=== PATIENT | male | born 1930 | race American Indian/Alaskan Native ===

== ENCOUNTER 2016-11-06 22:32 | Inpatient (IN) | payer MEDICARE ==
[2016-11-06] MEDS ORDERED: NACL 0.9% 1000 ML 1,000 ML IV ONE (23:29)
--- NOTE | 2016-11-06 23:36 | Emergency Department Report ---
HPI - General Chief Complaint: Altered Mental Status Time Seen by Provider: 11/06/16 23:23 - HPI HPI: Room 2 The patient is an 85-year-old male presenting with a chief complaint of altered mental status. Patient was sent from [facility] for low blood pressure. When asked why he was sent to the emergency department the patient replies softly "I don't know." The patient appeared lethargic. When asked if he had pain anywhere the patient mentions pain in the low back. The patient knowledges the pain as been there for months. Patient denies any new complaints. Patient denies pain elsewhere or any shortness of breath. Location: [see above] Duration: Unknown Quality: Altered, hypotensive Severity: Moderate Modifying factors: [see above] Context: [see above] Mode of transportation: [not driving] ED Past Medical Hx - Past Medical History Hx Dementia: Yes Additional medical history: high cholesterol - Surgical History Past Surgical History?: No Additional Surgical History: unknown - Family History Family history: no significant - Social History Smoking Status: Unknown if ever smoked Substance Use Type: None - Medications Home Medications: Home Medications Medication Instructions Recorded Confirmed Last Taken Type Aspirin 81 mg PO DAILY 02/29/16 11/06/16 11/06/16 History Cyanocobalamin (Vitamin B-12) 1,000 mcg PO DAILY 02/29/16 11/06/16 11/06/16 History [Vitamin B-12] Folic Acid [Folvite] 1 mg PO QDAY 02/29/16 11/06/16 11/06/16 History Gabapentin [Neurontin 250 mg/5 ml] 5 ml PO DAILY 02/29/16 11/06/16 11/06/16 History Ibuprofen [Motrin 800 MG tab] 800 mg PO Q8HR PRN #20 tablet 02/29/16 11/06/16 Rx Lisinopril/Hydrochlorothiazide 1 tab PO QDAY 02/29/16 11/06/16 11/06/16 History [Zestoretic 20-12.5 mg] Memantine Xr [Namenda Xr] 14 mg PO DAILY 02/29/16 11/06/16 11/06/16 History Potassium Chloride 10 meq PO QDAY 02/29/16 11/06/16 11/06/16 History Simvastatin [Zocor TAB] 20 mg PO QHS 02/29/16 11/06/16 11/06/16 History Cyanocobalamin (Vitamin B-12) 1,000 mcg PO DAILY 11/06/16 11/06/16 11/06/16 History [Vitamin B-12] Furosemide [Lasix] 20 mg PO QDAY 11/06/16 11/06/16 11/06/16 History Magnesium Citrate [Citroma] 296 ml PO DAILY 11/06/16 11/06/16 11/06/16 History QUEtiapine [SEROquel] 25 mg PO DAILY 11/06/16 11/06/16 11/06/16 History Sennosides/Docusate Sodium [Senna 1 each PO DAILY 11/06/16 11/06/16 11/06/16 History Laxative Tablet] ED Review of Systems ROS: Stated complaint: LOW BP Other details as noted in HPI Comment: Unobtainable due to pts medical conditions Musculoskeletal: back pain Physical Exam - Physical Exam Vital Signs: Vital Signs 11/06/16 11/06/16 22:33 22:42 Temperature 98.1 F Pulse Rate 85 85 Respiratory 16 16 Rate Blood Pressure 88/58 Blood Pressure 88/58 [Left] O2 Sat by Pulse 97 97 Oximetry Physical Exam: GENERAL: The patient is well-developed well-nourished male sleeping on stretcher somewhat difficult to arouse and lethargic in appearance. [] HEENT: Normocephalic. Atraumatic. NECK: Supple. Trachea midline CHEST/LUNGS: Clear to auscultation. There is no respiratory distress noted. HEART/CARDIOVASCULAR: Regular. There is no tachycardia. There is no gallop rub or murmur. ABDOMEN: Abdomen is soft, nontender. Patient has normal bowel sounds. There is no abdominal distention. SKIN: There is no rash. There is no edema. There is no diaphoresis. NEURO: The patient is lethargic and only opens his eyes when awakened by verbal and tactile stimuli. The patient is soft spoken and whispers his replies. The patient does not cooperate with neurological exam MUSCULOSKELETAL: There is no evidence of acute injury. ED Course Vital Signs 11/06/16 11/06/16 22:33 22:42 Temperature 98.1 F Pulse Rate 85 85 Respiratory 16 16 Rate Blood Pressure 88/58 Blood Pressure 88/58 [Left] O2 Sat by Pulse 97 97 Oximetry ED Medical Decision Making - Lab Data Result diagrams: 11/06/16 23:15 11/06/16 23:15 Laboratory Tests 11/06/16 11/06/16 11/06/16 23:15 23:15 23:15 WBC 5.0 RBC 3.90 Hgb 12.0 Hct 37.0 MCV 95 H MCH 31 MCHC 32 RDW 15.7 H Plt Count 136 L Lymph % (Auto) 34.2 [place] % (Auto) 9.6 H Eos % (Auto) 2.2 Baso % (Auto) 0.3 Lymph # 1.7 [place] # 0.5 Eos # 0.1 Baso # 0.0 Seg Neutrophils % 53.7 Seg Neutrophils # 2.7 PT INR APTT Sodium 139 Potassium 3.9 Chloride 103.5 Carbon Dioxide 23 Anion Gap 16 BUN 22 H Creatinine 1.1 Estimated GFR > 60 BUN/Creatinine Ratio 20.00 Glucose 101 H Lactic Acid 1.40 Calcium 9.0 Total Bilirubin 0.20 AST 13 ALT 11 Alkaline Phosphatase 106 Ammonia Total Creatine Kinase CK-MB (CK-2) CK-MB (CK-2) Rel Index Troponin T < 0.010 NT-Pro-B Natriuret Pep Total Protein 6.3 Albumin 3.3 L Albumin/Globulin Ratio 1.1 TSH Free T4 11/07/16 11/07/16 11/07/16 00:11 00:11 00:11 WBC RBC Hgb Hct MCV MCH MCHC RDW Plt Count Lymph % (Auto) [place] % (Auto) Eos % (Auto) Baso % (Auto) Lymph # [place] # Eos # Baso # Seg Neutrophils % Seg Neutrophils # PT 16.0 H INR 1.29 H APTT 29.3 Sodium Potassium Chloride Carbon Dioxide Anion Gap BUN Creatinine Estimated GFR BUN/Creatinine Ratio Glucose Lactic Acid Calcium Total Bilirubin AST ALT Alkaline Phosphatase Ammonia 71.0 H Total Creatine Kinase 63 CK-MB (CK-2) 2.1 CK-MB (CK-2) Rel Index 3.3 Troponin T < 0.010 NT-Pro-B Natriuret Pep 841.7 Total Protein Albumin Albumin/Globulin Ratio TSH Free T4 11/07/16 00:11 WBC RBC Hgb Hct MCV MCH MCHC RDW Plt Count Lymph % (Auto) [place] % (Auto) Eos % (Auto) Baso % (Auto) Lymph # [place] # Eos # Baso # Seg Neutrophils % Seg Neutrophils # PT INR APTT Sodium Potassium Chloride Carbon Dioxide Anion Gap BUN Creatinine Estimated GFR BUN/Creatinine Ratio Glucose Lactic Acid Calcium Total Bilirubin AST ALT Alkaline Phosphatase Ammonia Total Creatine Kinase CK-MB (CK-2) CK-MB (CK-2) Rel Index Troponin T NT-Pro-B Natriuret Pep Total Protein Albumin Albumin/Globulin Ratio TSH 1.290 Free T4 1.02 - EKG Data -: EKG Interpreted by Me EKG shows normal: sinus rhythm Rate: normal - EKG Data When compared to previous EKG there are: previous EKG unavailable Interpretation: nonspecific ST-T wave brie (T-wave inversions in leads 1, 2, aVL , aVF, V3, V4, V5, V6), other (left bundle branch block) - Radiology Data Radiology results: report reviewed (CT head), image reviewed (chest x-ray, CT head) interpreted by me: Chest x-ray-no focal infiltrates, no pneumothorax CT head (read by radiologist)-no acute abnormality - Differential Diagnosis altered mental status, sepsis, UTI, symptomatic anemia, Critical care attestation.: If time is entered above; I have spent that time in minutes in the direct care of this critically ill patient, excluding procedure time. ED Disposition Clinical Impression: Altered mental status, Hepatic encephalopathy, Dehydration Disposition: OP ADMITTED IP TO THIS HOSP Is pt being admited?: Yes Does the pt Need Aspirin: Yes Condition: Fair Referrals: PRIMARY CARE, [Primary Care Provider] - 3-5 Days Time of Disposition: 03:24 (hospitalist notified)
[2016-11-06 23:52] LABS: Basophils % (Auto) 0.3 % (0.0-1.8); Eosinophils % (Auto) 2.2 % (0.0-4.3); Mean Corpuscular HGB Conc 32 % (32-34); Mean Corpuscular Hemoglobin 31 pg (28-32); Mean Corpuscular Volume 95 fl (84-94); Platelet Count 136 K/mm3 (140-440); Red Cell Distribution Width 15.7 % (13.2-15.2)
[2016-11-07 00:13] LABS: Alanine Aminotransferase 11 units/L (7-56); Albumin 3.3 g/dL (3.9-5); Albumin/Globulin Ratio 1.1 %; Alkaline Phosphatase 106 units/L (35-129); Anion Gap 16 mmol/L; Blood Urea Nitrogen 22 mg/dL (9-20); Carbon Dioxide 23 mmol/L (22-30); Chloride 103.5 mmol/L (98-107); Glucose 101 mg/dL (75-100); Potassium 3.9 mmol/L (3.6-5.0); Sodium 139 mmol/L (137-145); Total Protein 6.3 g/dL (6.3-8.2)
--- NOTE | 2016-11-07 00:57 | Admit Criteria Form ---
Admission Criteria Documentation: HEMODYNAMIC INSTABILITY Clinical Indications for Inpatient Care (Place 'X' for any and all applicable criteria): Ongoing inpatient care may be indicated for hemodynamic instability as indicated by ANY ONE of the following (1)(2)(3)(4)(10): [ ]I) Marked hemodynamic change from baseline (eg, SBP 20 mm Hg below patient's usual pressure) [ ]II) New SBP less than 90 mm Hg or mean arterial pressure less than 70 mm Hg [B](15) [ ]IIII) Symptomatic heart rate greater than 100 or less than 60 beats per minute unresponsive to treatment (eg, analgesia, fluids) [X ]IV) Inadequate perfusion as indicated by ANY ONE of the following: [ ]a) Lactic acidosis, with lactic acid greater than 18 mg/dL (2 mmol/ L) or base excess less than -5 mEq/L [ ]b) New abnormal capillary refill (longer than 3 seconds) [X ]c) New altered mental status [ ]d) Reduced urine output [ ]V) Orthostatic vital sign changes [B] that are symptomatic and unresponsive to treatment (eg, fluids) [ ]) IV inotropic or vasopressor medication required(26) Extended stay beyond goal length of stay for primary condition may be needed until ALL of the following are present(1)(2)(3): [ ]a) Heart rate > 60 and < 100 beats per minute or patient is clinically stable at current rate (eg, baseline) [ ]b) SBP >100 mm Hg and <160 mm Hg or patient is clinically stable at current pressure (eg, baseline) [ ]c) DBP greater than 50 mm Hg and less than 100 mm Hg or patient is clinically stable at current pressure (eg, baseline) [ ]d) Urine output greater than 0.5 mL/kg per hour [ ]e) Room air oxygen saturation 90% or greater or at baseline [ ]f) Orthostatic vital sign changes absent, asymptomatic, at baseline, or manageable at lower level of care [ ]g) Medical comorbidities manageable at lower level of care The original [facility] content created by [employer] has been revised. The portions of the content which have been revised are identified through the use of italic text or in bold, and [facility] [employer] has neither reviewed nor approved the modified material. All other unmodified content is copyright [facility]. Please see references footnoted in the original [facility] edition 2016 Admission Criteria Met: Yes
[2016-11-07 00:59] LABS: INR 1.29 (0.87-1.13); Partial Thromboplastin Time 29.3 Sec. (24.2-36.6)
[2016-11-07 01:03] LABS: Creatine Kinase MB 2.1 ng/mL (0.0-4.0)
[2016-11-07 01:08] LABS: Creatine Kinase 63 units/L (55-170)
[2016-11-07] MEDS ORDERED: CEPHULAC PO ONE (02:00)
[2016-11-07 03:07] LABS: Bilirubin,Urine NEG (Negative); Blood,Urine SM (Negative); Ketones,Urine NEG (Negative); Leukocyte Esterase,Urine NEG (Negative); Mucus,Urine FEW /HPF; Nitrite,Urine NEG (Negative); Protein,Urine <15 mg/dL mg/dL (Negative)
--- NOTE | 2016-11-07 03:22 | Cat Scan Report ---
FINAL REPORT PROCEDURE: CT HEAD/BRAIN WO CON TECHNIQUE: Computerized tomography of the head was performed without contrast material. HISTORY: altered mental status COMPARISON: No prior studies are available for comparison. FINDINGS: Skull and scalp: Normal. Paranasal sinuses: Normal. Ventricles and subarachnoid spaces: There is moderate central and cortical atrophy. There is no hydrocephalus or asymmetry.. Cerebrum: No evidence of hemorrhage, acute infarction or mass. There is physiologic calcification in the basal ganglia bilaterally. 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 There is chronic bilateral periventricular deep white matter ischemic gliosis. 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 Vasculature: Normal. Comments: None. IMPRESSION: There are chronic changes as described. There is no acute abnormality.
[2016-11-07] MEDS ORDERED: ASPIRIN PO ONE (03:24)
--- NOTE | 2016-11-07 03:24 | History and Physical Report ---
History of Present Illness Chief complaint: confusion History of present illness: 85 YO Male who resides at [facility] with Dementia, HLD presents to ED for evaluation. Pt unable to provide history. Pt history taken from ED staff, and [facility] Staff. Pt was in his usual state of health until yesterday. Pt was found to have low blood pressure with systolic in the 80's and was confused. Pt was sent to ED for evaluation. Pt confused. Pt denies fever, chills, CP, Palpitations, NVD, recent ill contacts, syncope, trauma. Pt seen and evaluated in ED and is able to protect his airway. Past History Past Medical History: hyperlipidemia, other (dementia) Past Surgical History: No surgical history, Other (reviewed) Social history: single. denies: smoking, alcohol abuse, prescription drug abuse Family history: hypertension Medications and Allergies Allergies Allergy/AdvReac Type Severity Reaction Status Date / Time No Known Allergies Allergy Unverified 02/29/16 08:49 Home Medications Medication Instructions Recorded Confirmed Last Taken Type Aspirin 81 mg PO DAILY 02/29/16 11/06/16 11/06/16 History Cyanocobalamin (Vitamin B-12) 1,000 mcg PO DAILY 02/29/16 11/06/16 11/06/16 History [Vitamin B-12] Folic Acid [Folvite] 1 mg PO QDAY 02/29/16 11/06/16 11/06/16 History Gabapentin [Neurontin 250 mg/5 ml] 5 ml PO DAILY 02/29/16 11/06/16 11/06/16 History Ibuprofen [Motrin 800 MG tab] 800 mg PO Q8HR PRN #20 tablet 02/29/16 11/06/16 Rx Lisinopril/Hydrochlorothiazide 1 tab PO QDAY 02/29/16 11/06/16 11/06/16 History [Zestoretic 20-12.5 mg] Memantine Xr [Namenda Xr] 14 mg PO DAILY 02/29/16 11/06/16 11/06/16 History Potassium Chloride 10 meq PO QDAY 02/29/16 11/06/16 11/06/16 History Simvastatin [Zocor TAB] 20 mg PO QHS 02/29/16 11/06/16 11/06/16 History Cyanocobalamin (Vitamin B-12) 1,000 mcg PO DAILY 11/06/16 11/06/16 11/06/16 History [Vitamin B-12] Furosemide [Lasix] 20 mg PO QDAY 11/06/16 11/06/16 11/06/16 History Magnesium Citrate [Citroma] 296 ml PO DAILY 11/06/16 11/06/16 11/06/16 History QUEtiapine [SEROquel] 25 mg PO DAILY 11/06/16 11/06/16 11/06/16 History Sennosides/Docusate Sodium [Senna 1 each PO DAILY 11/06/16 11/06/16 11/06/16 History Laxative Tablet] Review of Systems ROS unobtainable: due to mental status Exam - Constitutional Vitals: Temp Pulse Resp BP Pulse Ox 98.1 F 74 23 125/83 95 11/06/16 22:42 11/07/16 02:11 11/07/16 02:11 11/07/16 02:11 11/07/16 02:11 General appearance: Present: mild distress, cachectic - EENT Eyes: Present: PERRL ENT: hearing intact, clear oral mucosa - Neck Neck: Present: supple, normal ROM - Respiratory Respiratory effort: normal Respiratory: bilateral: diminished - Cardiovascular Heart Sounds: Present: S1 & S2. Absent: rub, click - Extremities Extremities: pulses symmetrical, No edema Peripheral Pulses: within normal limits - Abdominal General gastrointestinal: Present: soft, non-tender, non-distended, normal bowel sounds Male genitourinary: Present: normal - Integumentary Integumentary: Present: clear, warm, dry - Musculoskeletal Musculoskeletal: generalized weakness - Psychiatric Psychiatric: appropriate mood/affect, no intact judgment & insight - Neurologic Neurologic: CNII-XII intact, moves all extremities Results - Labs CBC & Chem 7: 11/06/16 23:15 11/06/16 23:15 Labs: Abnormal lab results 11/06/16 11/06/16 11/07/16 Range/Units 23:15 23:15 00:11 MCV 95 H (84-94) fl RDW 15.7 H (13.2-15.2) % Plt Count 136 L (140-440) K/mm3 [place] % (Auto) 9.6 H (0.0-7.3) % PT 16.0 H (12.2-14.9) Sec. INR 1.29 H (0.87-1.13) BUN 22 H (9-20) mg/dL Glucose 101 H (75-100) mg/dL Ammonia (25-60) umol/L Albumin 3.3 L (3.9-5) g/dL 11/07/16 Range/Units 00:11 MCV (84-94) fl RDW (13.2-15.2) % Plt Count (140-440) K/mm3 [place] % (Auto) (0.0-7.3) % PT (12.2-14.9) Sec. INR (0.87-1.13) BUN (9-20) mg/dL Glucose (75-100) mg/dL Ammonia 71.0 H (25-60) umol/L Albumin (3.9-5) g/dL Assessment and Plan - Patient Problems (1) Hepatic encephalopathy Current Visit: Yes Status: Acute Plan to address problem: IVF, supportive care, monitor uop q shift, fall precautions, repeat ammonia level, lactulose, (2) Volume depletion Current Visit: Yes Status: Acute Plan to address problem: IVF replacement, monitor uop q shift (3) Dehydration Current Visit: Yes Status: Acute Plan to address problem: IVF replacement. (4) Hypotension Current Visit: Yes Status: Acute Qualifiers: Hypotension type: H Trimester: T Plan to address problem: IVF replacement, supportive care. (5) DVT prophylaxis Current Visit: Yes Status: Acute
[2016-11-07] MEDS ORDERED: DUONEB 0.5 MG-3 MG/3 ML SOLN IH PRN (03:42)
[2016-11-07] MEDS ORDERED: TYLENOL PO PRN (03:42)
[2016-11-07] MEDS ORDERED: ZOFRAN IV PRN (03:42)
[2016-11-07] MEDS ORDERED: NACL 0.45% 1000 ML 1,000 ML IV SCH (04:00)
[2016-11-07] MEDS ORDERED: PROVENTIL IH PRN (04:25)
--- NOTE | 2016-11-07 07:36 | XRay Report ---
PORTABLE CHEST INDICATION: Hypotension. COMPARISON: None similar. FINDINGS: Portable, frontal chest radiograph demonstrates mild exaggerated cardiomediastinal silhouette and slightly crowded lung markings, given limited inspiration. Slight fluid or thickening along the right minor fissure. Mild left basilar atelectasis. No pleural effusions or CHF. Sternotomy wires. Hepatic flexure lucency projects beneath the right hemidiaphragm. EKG leads. Intact bones. CONCLUSION: Hypoinflation without acute chest process, as described. Thank you for the opportunity to participate in this patient's care.
[2016-11-07] MEDS ORDERED: NACL 0.9% 1000 ML 1,000 ML IV SCH (09:00)
[2016-11-07 09:40] VITALS: BP 135/87
--- NOTE | 2016-11-07 09:57 | Discharge Summary ---
Providers - Providers Date of Admission: 11/07/16 03:42 Date of discharge: 11/07/16 Attending physician: SERENITY RIOS Primary care physician: AGUSTÍN OSEI MD Hospitalization Condition: Fair Hospital course: 85 YO Male who resides at [facility] with Dementia, HLD presents to ED for evaluation. Pt was in his usual state of health until yesterday. Pt was found to have low blood pressure with systolic in the 80's and was confused. In the ED his BP was low and had high ammonia level. he was given lactulose and placed on IV fluid. His mental status improved, BP stabilized. His BP meds was on hold for low BP. He will be discharge back to assisted living facility in stable condition. Discharge Diagnosis: (1) Hepatic encephalopathy s/p lactulose, liver function stable (2) Volume depletion due to dehydration (3) Hypotension due to dehydration and medication (4) dementia, at baseline, CT head no acute finding Disposition: DC/TX HOME UNDER HOME HEALTH Time spent for discharge: 32 minutes Core Measure Documentation - Palliative Care Palliative Care/ Comfort Measures: Not Applicable - Core Measures Any of the following diagnoses?: none Exam - Constitutional Vitals: Temp Pulse Resp BP Pulse Ox 97.7 F 87 18 135/87 97 11/07/16 09:38 11/07/16 09:38 11/07/16 09:38 11/07/16 09:38 11/07/16 06:09 General appearance: Present: no acute distress, well-nourished - EENT Eyes: Present: PERRL ENT: hearing intact, clear oral mucosa - Neck Neck: Present: supple, normal ROM - Respiratory Respiratory effort: normal Respiratory: bilateral: CTA - Cardiovascular Heart Sounds: Present: S1 & S2. Absent: rub, click - Extremities Extremities: pulses symmetrical, No edema Peripheral Pulses: within normal limits - Abdominal General gastrointestinal: Present: soft, non-tender, non-distended, normal bowel sounds - Integumentary Integumentary: Present: clear, warm, dry - Musculoskeletal Musculoskeletal: gait normal, strength equal bilaterally - Psychiatric Psychiatric: appropriate mood/affect, other (demented) - Neurologic Neurologic: CNII-XII intact, moves all extremities Plan Activity: up only with assistance Weight Bearing Status: Non-Weight Bearing Diet: regular Follow up with: PRIMARY CARE, [Primary Care Provider] - 3-5 Days Prescriptions: Lactulose [Cephulac] 20 gm PO QDAY 30 Days
[2016-11-07] MEDS ORDERED: K-DUR PO SCH (10:00)
[2016-11-07] MEDS ORDERED: BABY ASPIRIN PO SCH (10:00)
[2016-11-07] MEDS ORDERED: VITAMIN B-12 PO SCH (10:00)
[2016-11-07] MEDS ORDERED: SENOKOT S PO SCH (10:00)
[2016-11-07] MEDS ORDERED: NAMENDA XR PO SCH (10:00)
[2016-11-07] MEDS ORDERED: NEURONTIN PO SCH (10:00)
[2016-11-07] MEDS ORDERED: CITRATE OF MAGNESIA PO SCH (10:00)
[2016-11-07] MEDS ORDERED: FOLVITE PO SCH (10:00)
[2016-11-07] MEDS ORDERED: ZOCOR PO SCH (22:00)
== END 2016-11-07 15:45 | disposition home or self-care (01) | DRG 443 ==
LOC: ED 22:32 → CC2 11-07 03:42
PROVIDERS: ADMIT Internal Medicine; ATTEND Internal Medicine
DX: K72.90 Hepatic failure, unspecified without coma (principal); I95.9 Hypotension, unspecified; E86.0 Dehydration; F03.90 Unspecified dementia, unspecified severity, without behavioral disturbance, psychotic disturbance, mood disturbance, and anxiety; E78.5 Hyperlipidemia, unspecified; Z82.49 Family history of ischemic heart disease and other diseases of the circulatory system
CPT/HCPCS: 36415; 70450; 71010; 80053; 81001; 82140; 82550; 82553; 82962; 83880; 84439; 84443; 84484; 85025; 85610; 85730; 87040; 87086; 93005; 93010; 96360; J7030

== ENCOUNTER 2017-12-09 15:09 | Inpatient (IN) | payer MEDICARE ==
--- NOTE | 2017-12-09 15:59 | XRay Report ---
FINAL REPORT EXAM: XR HIP 1V LT HISTORY: fall/LT HIP pain TECHNIQUE: AP view of the pelvis obtained. No coned-down views of the left hip were obtained. PRIORS: None. FINDINGS: There deformity of the left superior pubic ramus suspicious for acute fracture. There may also be a corresponding fracture in the left inferior pubic ramus although difficult to confirm with overlying stool in a diaper during visualization. In the left hip, the no definite evidence for acute fracture or dislocation is seen. Joint spaces are maintained. The soft tissues are unremarkable. Bony mineralization is normal. There is severe degenerative disc changes in the lower lumbar spine. IMPRESSION: Acute fracture in the left superior pubic ramus and possible fracture in the left inferior pubic ramus. No acute soft tissue or bony abnormality noted in the left hip. No coned-down views of the left hip were obtained however.
--- NOTE | 2017-12-09 16:27 | XRay Report ---
FINAL REPORT PROCEDURE: XR RIBS UNI W PA CHEST 3+V LT TECHNIQUE: Bilateral rib radiographs, minimum of 4 views, including PA projection. CPT 92890 HISTORY: left lower rib pain, Chest pain 786.50 COMPARISON: No prior studies are available for comparison. FINDINGS: Heart: Normal . Mediastinum/Vessels: Tortuous or ectatic aorta. Lungs: Normal . Pleural space: Normal . Pneumothorax: None . Bony thorax/ribs: No acute or displaced rib fractures. IMPRESSION: No acute fracture is identified
--- NOTE | 2017-12-09 16:32 | Cat Scan Report ---
FINAL REPORT PROCEDURE: CT HEAD/BRAIN WO CON TECHNIQUE: Computerized tomography of the head was performed without contrast material. HISTORY: headache, s/p fall COMPARISON: 11/07/2016 FINDINGS: There is no CT evidence of intracranial hemorrhage, acute territorial infarction, or hydrocephalus. There is encephalomalacia in the right cerebellar hemisphere. There are underlying involutional changes, with prominence of the ventricles and the sulci. There is bilateral periventricular white matter low attenuation, compatible with chronic microvascular ischemic changes. There is limited evaluation of the pituitary gland, however there may be mild prominence. IMPRESSION: No CT evidence of acute abnormality. Chronic ischemic changes. Possible prominence of the pituitary gland, which is not fully evaluated
--- NOTE | 2017-12-09 16:36 | Cat Scan Report ---
FINAL REPORT PROCEDURE: CT CERVICAL SPINE WO CON TECHNIQUE: Computerized tomography of the cervical spine was performed from the skull base to T1 without contrast material. HISTORY: lower neck pain, s/p fall COMPARISON: No prior studies are available for comparison. FINDINGS: There are severe degenerative disc changes from C3-4 through C7/T1. Vertebral body alignment is grossly maintained. No acute fracture or subluxation is seen. IMPRESSION: No acute fracture is identified.
--- NOTE | 2017-12-09 17:05 | Emergency Department Report ---
HPI - General Chief Complaint: Fall Time Seen by Provider: 12/09/17 15:38 - HPI HPI: The patient is a 86-year-old male who presents for evaluation of left-sided hip pain status post fall. The patient reports that earlier this morning, approximately 1-2 hours prior to evaluation, the patient sustained a mechanical fall from tripping at his retirement, and fell on his left side. He complains of left hip and rib pain, constant since his accident, moderate severity, aching in quality, exacerbated with movement. He also admits to some mild left-sided headache. He denies fever, neck pain, chest pain, dyspnea, back pain, abdominal pain, pain to the arms or legs bilaterally, paresthesia, or lateralizing focal motor deficit. ED Past Medical Hx - Past Medical History Hx Dementia: Yes Additional medical history: high cholesterol - Surgical History Additional Surgical History: unknown - Social History Smoking Status: Never Smoker Substance Use Type: None - Medications Home Medications: Home Medications Medication Instructions Recorded Confirmed Last Taken Type Aspirin 81 mg PO DAILY 02/29/16 11/06/16 11/06/16 History Cyanocobalamin (Vitamin B-12) 1,000 mcg PO DAILY 02/29/16 11/06/16 11/06/16 History [Vitamin B-12] Gabapentin [Neurontin 250 mg/5 ml] 5 ml PO DAILY 02/29/16 11/06/16 11/06/16 History Memantine Xr [Namenda Xr] 14 mg PO DAILY 02/29/16 11/06/16 11/06/16 History Potassium Chloride 10 meq PO QDAY 02/29/16 11/06/16 11/06/16 History Cyanocobalamin (Vitamin B-12) 1,000 mcg PO DAILY 11/06/16 11/06/16 11/06/16 History [Vitamin B-12] Magnesium Citrate [Citroma] 296 ml PO DAILY 11/06/16 11/06/16 11/06/16 History QUEtiapine [SEROquel] 25 mg PO DAILY 11/06/16 11/06/16 11/06/16 History Sennosides/Docusate Sodium [Senna 1 each PO DAILY 11/06/16 11/06/16 11/06/16 History Laxative Tablet] Lactulose [Cephulac] 20 gm PO QDAY 30 Days ml 11/07/16 Unknown Rx Folic Acid [Folvite] 1 mg PO QDAY #30 tablet 12/09/17 Unknown Rx ED Review of Systems ROS: Stated complaint: FALL Other details as noted in HPI Constitutional: denies: fever ENT: denies: throat or neck pain Respiratory: denies: cough, shortness of breath Cardiovascular: denies: chest pain Endocrine: denies unexplained weight loss or gain Gastrointestinal: denies: abdominal pain, nausea Genitourinary: denies: dysuria Musculoskeletal: reports left rib and hip pain, denies: leg swelling Skin: denies: rash Neurological: reports: headache Hematological/Lymphatic: denies: easy bleeding or easy bruising Psych: denies sadness or hopelessness Physical Exam - Physical Exam Physical Exam: General: well-nourished, well-developed, no acute distress Head: Normocephalic, atraumatic Eyes: normal sclera ENT: Mucous membranes are pink and moist Neck: trachea midline, neck supple, No neck stiffness, no cervical adenopathy Respiratory: Breath sounds equal bilaterally, no wheezing, rales, or rhonchi Cardio: S1 and S2 present, no murmurs, rubs, gallops, capillary refill is brisk Abdomen: Normoactive bowel sounds, soft abdomen, no tenderness Chest WALL/Back: No tenderness to palpation of the chest wall, no CVA tenderness with percussion Musc: left Lower intercostal tenderness to the posterior axillary line, no bruising, redness, ecchymosis, crepitus, or deformity, left lateral hip tenderness present as well, full passive range of motion of the left hip intact , sensation, water flush, and pulses intact in the distal legs or arms bilaterally, No pitting edema of the legs Skin: No rash Neuro: no facial drooping, normal speech Psych: Normal affect ED Medical Decision Making - Lab Data Result diagrams: 12/09/17 16:54 12/09/17 16:54 - Medical Decision Making The patient was seen and examined by myself. The patient is placed on a hall monitor and continuous pulse ox. On initial evaluation, the patient was found to be in no distress. Evaluation orders were placed. The patient given pain medicine. CT scan the head is negative for acute intracranial disease process. CT scan of the cervical spine is negative for acute fracture or subluxation, or malalignment, x-ray of the left hip exhibits findings suggestive of a left superior and inferior rami fracture. X-ray of the chest and left ribs is negative for pneumothorax, effusion, wide mediastinum, or rib fractures. CT scan of the abdomen and pelvis is ordered to evaluate pelvic x- ray findings concerning for fracture. The patient is given additional pain medicine. Lab results are grossly unrevealing. CT scan of the pelvis reveals left superior and inferior pubic rami fractures, without posterior or lateral pelvic ring fractures, and without any SI joint dislocation. The patient's fractures are stable pelvic fractures and the patient does not require emergent orthopedic consultation. As the patient is elderly and at high risk for occult injuries, the patient will be admitted for close cardiopulmonary monitoring, continued pain control, and early mobilization. A consultation for the other. His surgeon Dr. Lemus is placed for Monday, when he is back senior controls engineer. Dr. Mills, the physician covering for the hospitalist service was contacted. He agrees to admit the patient. The patient will be admitted. Critical care attestation.: If time is entered above; I have spent that time in minutes in the direct care of this critically ill patient, excluding procedure time. ED Disposition Clinical Impression: Acute pain of left hip Closed fracture of left superior pubic ramus Qualifiers: Encounter type: initial encounter Qualified Code(s): S32.512A - Fracture of superior rim of left pubis, initial encounter for closed fracture Closed fracture of left inferior pubic ramus Qualifiers: Encounter type: initial encounter Qualified Code(s): S32.592A - Other specified fracture of left pubis, initial encounter for closed fracture Disposition: OP ADMIT IP TO THIS HOSP Is pt being admited?: Yes Does the pt Need Aspirin: Yes Condition: Fair Prescriptions: Folic Acid [Folvite] 1 mg PO QDAY #30 tablet Referrals: PRIMARY CARE, [Primary Care Provider] - 3-5 Days Time of Disposition: 19:53
[2017-12-09 17:09] LABS: Basophils % (Auto) 0.3 % (0.0-1.8); Eosinophils # (Auto) 0.1 K/mm3 (0.0-0.4); Eosinophils % (Auto) 0.6 % (0.0-4.3); Hematocrit 42.6 % (35.5-45.6); Hemoglobin 14.1 gm/dl (11.8-15.2); Lymphocytes # (Auto) 1.6 K/mm3 (1.2-5.4); Lymphocytes % (Auto) 15.4 % (13.4-35.0); Mean Corpuscular HGB Conc 33 % (32-34); Mean Corpuscular Hemoglobin 32 pg (28-32); Mean Corpuscular Volume 97 fl (84-94); Monocytes # (Auto) 0.5 K/mm3 (0.0-0.8); Monocytes % (Auto) 5.3 % (0.0-7.3); Red Blood Count 4.38 M/mm3 (3.65-5.03); Red Cell Distribution Width 14.4 % (13.2-15.2)
[2017-12-09] MEDS ORDERED: SUBLIMAZE IV ONE (17:09)
[2017-12-09 17:18] LABS: INR 1.15 (0.87-1.13)
[2017-12-09 17:19] LABS: Partial Thromboplastin Time 28.4 Sec. (24.2-36.6)
[2017-12-09 17:21] LABS: Alanine Aminotransferase 22 units/L (7-56); BUN/Creatinine Ratio 20; Blood Urea Nitrogen 24 mg/dL (9-20); Hemolysis Index 62
[2017-12-09 17:30] LABS: Platelet Count 154 K/mm3 (140-440)
[2017-12-09] MEDS ORDERED: TYLENOL #3 PO ONE (17:35)
[2017-12-09] MEDS ORDERED: ZOFRAN ODT PO ONE (17:35)
[2017-12-09 17:51] LABS: Bilirubin,Urine NEG (Negative); Blood,Urine NEG (Negative); Color,Urine Yellow (Yellow); Mucus,Urine FEW /HPF; Protein,Urine <15 mg/dL mg/dL (Negative)
--- NOTE | 2017-12-09 18:15 | Cat Scan Report ---
FINAL REPORT PROCEDURE: CT PELVIS WO CON TECHNIQUE: Computerized axial tomography of the pelvis was performed without contrast material. HISTORY: left hip/pelvic pain, suspected rami fx on XRay COMPARISON: No prior studies are available for comparison. TECHNICAL QUALITY: Satisfactory. FINDINGS: Imaged small and large intestine: Circumferential rectal wall thickening. Genitourinary system: Normal . Lymph nodes/mesentery: Normal . Pelvic masses: None . Intraperitoneal fluid: None . There are acute fractures of the left superior and inferior pubic rami. The proximal femurs are intact bilaterally. No evidence of hip joint dislocation. No other fracture is seen. IMPRESSION: Acute fractures of the left superior and inferior pubic rami
[2017-12-09] MEDS ORDERED: ATIVAN ONE (18:54)
[2017-12-09] MEDS ORDERED: ATIVAN IM ONE (18:55)
[2017-12-09] MEDS ORDERED: NACL 0.9% 500 ML 500 ML IV ONE (19:55)
[2017-12-09] MEDS ORDERED: ZOFRAN IV PRN ×2 (20:04→20:06)
[2017-12-09] MEDS ORDERED: TYLENOL PO PRN ×2 (20:04→20:06)
[2017-12-09] MEDS ORDERED: SODIUM CHLORIDE FLUSH SYRINGE 10 ML IV PRN ×2 (20:04→20:06)
[2017-12-09] MEDS ORDERED: MORPHINE IV PRN (20:06)
[2017-12-09] MEDS ORDERED: PERCOCET 5/325 PO PRN (20:06)
--- NOTE | 2017-12-09 20:28 | XRay Report ---
FINAL REPORT PROCEDURE: XR FEMUR 2+V LT TECHNIQUE: Left femur, AP and lateral views HISTORY: left leg pain COMPARISON: No prior studies are available for comparison. FINDINGS: Left pubic rami fractures are better visualized on the prior CT. The left femur is intact. No left hip joint dislocation is seen. Vascular calcifications are noted. IMPRESSION: No left femur fracture is seen. Note is made again of left pubic rami fractures
--- NOTE | 2017-12-09 20:30 | History and Physical Report ---
History of Present Illness Date of examination: 12/09/17 Date of admission: 12/09/2017 Chief complaint: Fall from assisted living facility of hip pain History of present illness: 86-year-old with a history of dementia presented with a ground-level fall at assisted living facility. Patient complain of hip pain was brought in for evaluation. Patient x-ray consistent with pelvic rami fracture. CT scan obtained as well as confirmed pelvic rami fracture. No femur fracture. Nondisplaced pelvic rami fracture. Patient will be admitted for pain control. See how he tolerates pain medication as of his advanced age. History from the patient is very difficult. He is able to day that his left leg hurts but unable to take U how he had a fall. He states two bullies was there. Patient unable to really describe the pain. Appears comfortable in bed. Patient does have some pain with attempted passive range of motion. No wearing on his head does appear to have a laceration. Did examine the flank area intercostal area. And did not have any pain in that area at this time. Past History Past Medical History: denies: acute [place], atrial fib, arrhythmia, anemia, CAD, DVT , GERD, HIV/AIDS, hyperthyroidism, liver disease, renal failure, stroke Past Surgical History: Other (unknown) Social history: no significant social history Family history: no significant family history, other (unknown Fabien to obtain) Medications and Allergies Allergies Allergy/AdvReac Type Severity Reaction Status Date / Time No Known Allergies Allergy Verified 12/09/17 15:13 Home Medications Medication Instructions Recorded Confirmed Last Taken Type Aspirin 81 mg PO DAILY 02/29/16 11/06/16 11/06/16 History Cyanocobalamin (Vitamin B-12) 1,000 mcg PO DAILY 02/29/16 11/06/16 11/06/16 History [Vitamin B-12] Gabapentin [Neurontin 250 mg/5 ml] 5 ml PO DAILY 02/29/16 11/06/16 11/06/16 History Memantine Xr [Namenda Xr] 14 mg PO DAILY 02/29/16 11/06/16 11/06/16 History Potassium Chloride 10 meq PO QDAY 02/29/16 11/06/16 11/06/16 History Cyanocobalamin (Vitamin B-12) 1,000 mcg PO DAILY 11/06/16 11/06/16 11/06/16 History [Vitamin B-12] Magnesium Citrate [Citroma] 296 ml PO DAILY 11/06/16 11/06/16 11/06/16 History QUEtiapine [SEROquel] 25 mg PO DAILY 11/06/16 11/06/16 11/06/16 History Sennosides/Docusate Sodium [Senna 1 each PO DAILY 11/06/16 11/06/16 11/06/16 History Laxative Tablet] Lactulose [Cephulac] 20 gm PO QDAY 30 Days ml 11/07/16 Unknown Rx Folic Acid [Folvite] 1 mg PO QDAY #30 tablet 12/09/17 Unknown Rx Active Meds: Active Medications Acetaminophen (Tylenol) 650 mg PO Q4H PRN PRN Reason: Pain MILD(1-3)/Fever >100.5/VIDAL Acetaminophen (Tylenol) 650 mg PO Q4H PRN PRN Reason: Pain MILD(1-3)/Fever >100.5/VIDAL Aspirin (Baby Aspirin) 81 mg PO DAILY [facility] Sodium Chloride (Nacl 0.9% 500 Ml) 500 mls @ 125 mls/hr IV ONCE ONE Stop: 12/09/17 23:54 Dextrose/Sodium Chloride (D5/0.45ns) 1,000 mls @ 75 mls/hr IV DIRECT [facility] Lactulose (Cephulac) 20 gm PO QDAY [facility] Morphine Sulfate (Morphine) 2 mg IV Q4H PRN PRN Reason: Pain, Moderate (4-6) Ondansetron HCl (Zofran) 4 mg IV Q8H PRN PRN Reason: Nausea And Vomiting Ondansetron HCl (Zofran) 4 mg IV Q8H PRN PRN Reason: Nausea And Vomiting Oxycodone/Acetaminophen (Percocet 5/325) 1 tab PO Q6H PRN PRN Reason: Pain, Moderate (4-6) Quetiapine Fumarate (Seroquel) 25 mg PO DAILY [facility] Senna/Docusate Sodium (Senokot S) 1 tab PO DAILY [facility] Sodium Chloride (Sodium Chloride Flush Syringe 10 Ml) 10 ml IV BID [facility] Sodium Chloride (Sodium Chloride Flush Syringe 10 Ml) 10 ml IV PRN PRN PRN Reason: LINE FLUSH Sodium Chloride (Sodium Chloride Flush Syringe 10 Ml) 10 ml IV BID [facility] Sodium Chloride (Sodium Chloride Flush Syringe 10 Ml) 10 ml IV PRN PRN PRN Reason: LINE FLUSH Review of Systems ROS unobtainable: due to mental status Constitutional: other (attempts were made to get a good history. Patient poor historian at this time. We'll just dave with patient said), no weight loss, no weight gain, no chills, no anorexia, no weakness, no lethargy, no poor appetite , no chronic pain Ears, nose, mouth and throat: no ear pain, no ear discharge, no decreased hearing, no nasal congestion, no mouth pain, no dysphagia Cardiovascular: no chest pain, no orthopnea, no palpitations, no rapid/ irregular heart beat, no leg edema Respiratory: no cough, no cough with sputum, no hemoptysis, no wheezing Gastrointestinal: no abdominal pain, no nausea, no vomiting, no diarrhea, no constipation, no early satiety Musculoskeletal: low back pain, shooting leg pain, no neck stiffness, no neck pain, no shooting arm pain, no leg numbness/tingling, no redness of joints, no hot joints, no morning stiffness Integumentary: no rash, no pruritis Neurological: no head injury, no transient paralysis, no paralysis, no weakness , no parathesias, no numbness, no change in speech Psychiatric: other (patient has mood disorder already on Seroquel.) Exam - Constitutional Vitals: Temp Pulse Resp BP Pulse Ox 97.9 F 86 86 H 119/86 95 12/09/17 15:13 12/09/17 19:26 12/09/17 19:26 12/09/17 20:01 12/09/17 19:26 General appearance: Present: no acute distress, well-nourished - EENT Eyes: Present: PERRL ENT: hearing intact, clear oral mucosa - Neck Neck: Present: supple, normal ROM - Respiratory Respiratory effort: normal Respiratory: bilateral: CTA - Cardiovascular Heart Sounds: Present: S1 & S2. Absent: rub, click - Extremities Extremities: pulses symmetrical, No edema Extremity abnormal: other (patient has pain with passive range of motion. Unable to lift either leg against gravity. No pain at rest) Peripheral Pulses: within normal limits - Abdominal General gastrointestinal: Present: soft, non-tender, non-distended, normal bowel sounds Male genitourinary: Present: normal - Integumentary Integumentary: Present: clear, warm, dry - Musculoskeletal Musculoskeletal: strength equal bilaterally, generalized weakness, other ( generalized weakness unable to lift either leg against gravity. Pain with passive range of motion left leg.) - Psychiatric Psychiatric: other (her insight into disease state poor cognition.) - Neurologic Neurologic: CNII-XII intact, moves all extremities Results - Labs CBC & Chem 7: 12/09/17 16:54 12/09/17 16:54 Labs: Laboratory Last Values WBC 10.3 K/mm3 (4.5-11.0) 12/09/17 16:54 RBC 4.38 M/mm3 (3.65-5.03) 12/09/17 16:54 Hgb 14.1 gm/dl (11.8-15.2) 12/09/17 16:54 Hct 42.6 % (35.5-45.6) 12/09/17 16:54 MCV 97 fl (84-94) H 12/09/17 16:54 MCH 32 pg (28-32) 12/09/17 16:54 MCHC 33 % (32-34) 12/09/17 16:54 RDW 14.4 % (13.2-15.2) 12/09/17 16:54 Plt Count 154 K/mm3 (140-440) 12/09/17 16:54 Lymph % (Auto) 15.4 % (13.4-35.0) 12/09/17 16:54 [place] % (Auto) 5.3 % (0.0-7.3) 12/09/17 16:54 Eos % (Auto) 0.6 % (0.0-4.3) 12/09/17 16:54 Baso % (Auto) 0.3 % (0.0-1.8) 12/09/17 16:54 Lymph # 1.6 K/mm3 (1.2-5.4) 12/09/17 16:54 [place] # 0.5 K/mm3 (0.0-0.8) 12/09/17 16:54 Eos # 0.1 K/mm3 (0.0-0.4) 12/09/17 16:54 Baso # 0.0 K/mm3 (0.0-0.1) 12/09/17 16:54 Seg Neutrophils % 78.4 % (40.0-70.0) H 12/09/17 16:54 Seg Neutrophils # 8.1 K/mm3 (1.8-7.7) H 12/09/17 16:54 PT 15.3 Sec. (12.2-14.9) H 12/09/17 16:54 INR 1.15 (0.87-1.13) H 12/09/17 16:54 APTT 28.4 Sec. (24.2-36.6) 12/09/17 16:54 Sodium 141 mmol/L (137-145) 12/09/17 16:54 Potassium 4.7 mmol/L (3.6-5.0) 12/09/17 16:54 Chloride 101.1 mmol/L (98-107) 12/09/17 16:54 Carbon Dioxide 29 mmol/L (22-30) 12/09/17 16:54 Anion Gap 16 mmol/L 12/09/17 16:54 BUN 24 mg/dL (9-20) H 12/09/17 16:54 Creatinine 1.2 mg/dL (0.8-1.5) 12/09/17 16:54 Estimated GFR > 60 ml/min 12/09/17 16:54 BUN/Creatinine Ratio 20 % 12/09/17 16:54 Glucose 92 mg/dL (75-100) 12/09/17 16:54 Calcium 10.0 mg/dL (8.4-10.2) 12/09/17 16:54 Total Bilirubin 0.30 mg/dL (0.1-1.2) 12/09/17 16:54 AST 27 units/L (5-40) 12/09/17 16:54 ALT 22 units/L (7-56) 12/09/17 16:54 Alkaline Phosphatase 97 units/L (35-129) 12/09/17 16:54 Total Protein 6.8 g/dL (6.3-8.2) 12/09/17 16:54 Albumin 4.0 g/dL (3.9-5) 12/09/17 16:54 Albumin/Globulin Ratio 1.4 % 12/09/17 16:54 Urine Color Yellow (Yellow) 12/09/17 17:15 Urine Turbidity Clear (Clear) 12/09/17 17:15 Urine pH 7.0 (5.0-7.0) 12/09/17 17:15 Ur Specific [place] 1.017 (1.003-1.030) 12/09/17 17:15 Urine Protein <15 mg/dl mg/dL (Negative) 12/09/17 17:15 Urine Glucose (UA) Neg mg/dL (Negative) 12/09/17 17:15 Urine Ketones Neg mg/dL (Negative) 12/09/17 17:15 Urine Blood Neg (Negative) 12/09/17 17:15 Urine Nitrite Neg (Negative) 12/09/17 17:15 Urine Bilirubin Neg (Negative) 12/09/17 17:15 Urine Urobilinogen 4.0 mg/dL (<2.0) 12/09/17 17:15 Ur Leukocyte Esterase Neg (Negative) 12/09/17 17:15 Urine WBC (Auto) 1.0 /HPF (0.0-6.0) 12/09/17 17:15 Urine RBC (Auto) 2.0 /HPF (0.0-6.0) 12/09/17 17:15 Urine Mucus Few /HPF 12/09/17 17:15 - Imaging and Cardiology EKG: image reviewed Chest x-ray: image reviewed, other (x-ray of hip) CT scan - pelvis: image reviewed Assessment and Plan Advance Directives: Yes (poor cognition patient cannot understand.) VTE prophylaxis?: Chemical Plan of care discussed with patient/family: No - Patient Problems (1) Acute pain of left hip Current Visit: Yes Status: Acute Plan to address problem: Secondary to pelvic rami fracture (2) Closed fracture of left superior pubic ramus Current Visit: Yes Status: Acute Qualifiers: Encounter type: initial encounter Qualified Code(s): S32.512A - Fracture of superior rim of left pubis, initial encounter for closed fracture Plan to address problem: She would closed pelvic rami fracture. At present not much to do. Patient appears to be pain free at rest. We'll only use morphine and Percocet when necessary given patient's advanced age. We'll add Tylenol 650 mg. May benefit from some sort of occupational therapy. Patient is being admitted to observe pain for 24 hours and make sure he has no untoward events given his advanced age. Would also limit his pain medication and Seroquel. Will not give today. I placed it on for an emergency if patient has acting out from his mood disorder with dementia. We'll resume his anti-dementia medications and treat with Tylenol for now. Also orthopedic evaluation a.m.
[2017-12-09] MEDS ORDERED: NACL 0.9% 500 ML 500 ML ONE (21:10)
[2017-12-09] MEDS ORDERED: SODIUM CHLORIDE FLUSH SYRINGE 10 ML IV SCH (22:00)
[2017-12-09] MEDS: SODIUM CHLORIDE FLUSH SYRINGE 10 ML IV SCH (23:02)
[2017-12-09] MEDS: SENOKOT S PO SCH (23:02)
[2017-12-10] MEDS: D5/0.45NS 1,000 ML IV SCH ×2 (01:52→19:10)
[2017-12-10] MEDS ORDERED: LOVENOX SUB-Q SCH ×2 (10:00)
--- NOTE | 2017-12-10 11:55 | Consultation ---
History of Present Illness - [facility] Consult date: 12/10/17 Consult reason: fracture History of present illness: 86-year-old male who presents for evaluation of left-sided hip pain status post fall. The patient reports that earlier this morning, approximately 1-2 hours prior to evaluation, the patient sustained a mechanical fall from tripping at his custodial, and fell on his left side. He complains of left hip and rib pain, constant since his accident, moderate severity, aching in quality, exacerbated with movement. Patient was seen in the emergency room and admitted orthopedic consult requested. There were no family members present on exam Past History Past Medical History: denies: acute [place], atrial fib, arrhythmia, anemia, CAD, DVT , GERD, HIV/AIDS, hyperthyroidism, liver disease, renal failure, stroke Past Surgical History: Other (unknown) Social history: no significant social history Family history: no significant family history, other (unknown Fabien to obtain) Medications and Allergies Allergies Allergy/AdvReac Type Severity Reaction Status Date / Time No Known Allergies Allergy Verified 12/09/17 15:13 Home Medications Medication Instructions Recorded Confirmed Last Taken Type Aspirin 81 mg PO DAILY 02/29/16 11/06/16 11/06/16 History Cyanocobalamin (Vitamin B-12) 1,000 mcg PO DAILY 02/29/16 11/06/16 11/06/16 History [Vitamin B-12] Gabapentin [Neurontin 250 mg/5 ml] 5 ml PO DAILY 02/29/16 11/06/16 11/06/16 History Memantine Xr [Namenda Xr] 14 mg PO DAILY 02/29/16 11/06/16 11/06/16 History Potassium Chloride 10 meq PO QDAY 02/29/16 11/06/16 11/06/16 History Cyanocobalamin (Vitamin B-12) 1,000 mcg PO DAILY 11/06/16 11/06/16 11/06/16 History [Vitamin B-12] Magnesium Citrate [Citroma] 296 ml PO DAILY 11/06/16 11/06/16 11/06/16 History QUEtiapine [SEROquel] 25 mg PO DAILY 11/06/16 11/06/16 11/06/16 History Sennosides/Docusate Sodium [Senna 1 each PO DAILY 05/21/17 05/21/17 05/21/17 History Laxative Tablet] Lactulose [Cephulac] 20 gm PO QDAY 30 Days ml 11/07/16 Unknown Rx Folic Acid [Folvite] 1 mg PO QDAY #30 tablet 12/09/17 Unknown Rx Active Meds: Active Medications Acetaminophen (Tylenol) 650 mg PO Q4H PRN PRN Reason: Pain MILD(1-3)/Fever >100.5/VIDAL Aspirin (Baby Aspirin) 81 mg PO DAILY [facility] Enoxaparin Sodium (Lovenox) 40 mg SUB-Q QDAY@1000 [facility] Dextrose/Sodium Chloride (D5/0.45ns) 1,000 mls @ 75 mls/hr IV DIRECT [facility] Last Admin: 12/10/17 01:52 Dose: 75 mls/hr Lactulose (Cephulac) 20 gm PO QDAY [facility] Morphine Sulfate (Morphine) 2 mg IV Q4H PRN PRN Reason: Pain, Moderate (4-6) Ondansetron HCl (Zofran) 4 mg IV Q8H PRN PRN Reason: Nausea And Vomiting Oxycodone/Acetaminophen (Percocet 5/325) 1 tab PO Q6H PRN PRN Reason: Pain, Moderate (4-6) Quetiapine Fumarate (Seroquel) 25 mg PO DAILY [facility] Senna/Docusate Sodium (Senokot S) 1 tab PO DAILY [facility] Last Admin: 12/09/17 23:02 Dose: Not Given Sodium Chloride (Sodium Chloride Flush Syringe 10 Ml) 10 ml IV BID [facility] Last Admin: 12/09/17 23:02 Dose: 10 ml Sodium Chloride (Sodium Chloride Flush Syringe 10 Ml) 10 ml IV PRN PRN PRN Reason: LINE FLUSH Physical Examination - Physical exam Narrative exam: Patient is alert and oriented only to person He denies pain or having a fall There was some tenderness noted in the left groin region and passive range of motion diminished limb lengths were equal. Good capillary refill distally Assessment and Plan Left Superior inferior pubic rami fractures, stable Recommend bed rest followed by physical therapy for gait training
[2017-12-10] MEDS: SENOKOT S PO SCH (12:00)
[2017-12-10] MEDS: CEPHULAC PO SCH (12:00)
[2017-12-10] MEDS: BABY ASPIRIN PO SCH (12:01)
[2017-12-10] MEDS: SODIUM CHLORIDE FLUSH SYRINGE 10 ML IV SCH ×2 (12:02→23:40)
--- NOTE | 2017-12-10 15:47 | Progress Note ---
Assessment and Plan - Acute pain of left hip Current Visit: Yes Status: Acute Plan to address problem: Secondary to pelvic rami fracture - Closed fracture of left superior pubic ramus Stable. Ortho recomend bed rest followed by PT/OT - Dementia Continue with home meds - DVT PPx with lovenox and GI with pepcid Subjective Date of service: 12/10/17 Principal diagnosis: close pelvic fracture of tehlef supr ramus following a fall at the SNF Interval history: Patient seen and examined. No new complaints. Denies any fever or chest pain and shortness of breath Objective - Exam Narrative Exam: Constitutional: Well-nourished well-developed. In no distress Head: Normocephalic atraumatic Eyes: Pupils are equal round and reactive to light Nose: No enlarged turbinates, no septal deviation. Mouth: Moist mucous membranes. Neck: Supple no thyromegaly. No bruit. No JVD Heart: Regular rate and rhythm, S1-S2 abnormal. No rubs murmurs or gallop Lungs: Clear to auscultation bilaterally no rales or rhonchi Abdomen: Soft, nontender. Bowel sound are present. Extremities: No edema no cyanosis and no clubbing. Neuro: Alert oriented Oriented x3. No focal sensory or motor deficit. Skin: No rashes no hyperemic spots Psychiatry: Euthymic. Calm. - Constitutional Vitals: Vital Signs - 12hr 12/10/17 12/10/17 12/10/17 08:33 10:00 14:26 Temperature 98.9 F 98.7 F Pulse Rate 74 103 H Respiratory 20 Rate Respiratory 20 Rate [Left Hip] Blood Pressure 126/76 137/87 O2 Sat by Pulse 98 89 Oximetry - Labs CBC & Chem 7: 12/09/17 16:54 12/09/17 16:54 Labs: Abnormal lab results 12/09/17 12/09/17 12/09/17 Range/Units 16:54 16:54 16:54 MCV 97 H (84-94) fl Seg Neutrophils % 78.4 H (40.0-70.0) % Seg Neutrophils # 8.1 H (1.8-7.7) K/mm3 PT 15.3 H (12.2-14.9) Sec. INR 1.15 H (0.87-1.13) BUN 24 H (9-20) mg/dL
[2017-12-11 05:45] LABS: Basophils % (Auto) 0.3 % (0.0-1.8); Eosinophils # (Auto) 0.1 K/mm3 (0.0-0.4); Eosinophils % (Auto) 1.6 % (0.0-4.3); Hematocrit 41.1 % (35.5-45.6); Hemoglobin 13.7 gm/dl (11.8-15.2); Lymphocytes # (Auto) 1.1 K/mm3 (1.2-5.4); Lymphocytes % (Auto) 16.5 % (13.4-35.0); Mean Corpuscular HGB Conc 33 % (32-34); Mean Corpuscular Hemoglobin 32 pg (28-32); Mean Corpuscular Volume 96 fl (84-94); Monocytes # (Auto) 0.5 K/mm3 (0.0-0.8); Monocytes % (Auto) 7.7 % (0.0-7.3); Platelet Count 115 K/mm3 (140-440); Red Blood Count 4.28 M/mm3 (3.65-5.03); Red Cell Distribution Width 14.4 % (13.2-15.2)
[2017-12-11 06:50] LABS: Alanine Aminotransferase 18 units/L (7-56); Albumin 3.9 g/dL (3.9-5); BUN/Creatinine Ratio 11; Blood Urea Nitrogen 10 mg/dL (9-20); Calcium 10.2 mg/dL (8.4-10.2); Hemolysis Index 33
[2017-12-11] MEDS: D5/0.45NS 1,000 ML IV SCH (07:12)
--- NOTE | 2017-12-11 10:52 | Discharge Summary ---
Providers - Providers Date of Admission: 12/09/17 20:04 Attending physician: GEM DE LA ROSA MD 12/11/17 08:00 Consult to Physician [CONS] Stat Comment: called answ. serv. spoke to sharda/peggy Consulting Provider: KAJAL LYNN Physician Instructions: Reason For Exam: pelvic fracture Primary care physician: [employer] Hospitalization Reason for admission: FALL WITH FRACTURE Condition: Stable Hospital course: 86-year-old with a history of dementia presented with a ground-level fall at assisted living facility. Patient complain of hip pain was brought in for evaluation. Patient x-ray consistent with pelvic rami fracture. CT scan obtained as well as confirmed pelvic rami fracture. No femur fracture. Nondisplaced pelvic rami fracture. Patient will be admitted for pain control. See how he tolerates pain medication as of his advanced age. History from the patient is very difficult. He is able to day that his left leg hurts but unable to take U how he had a fall. He states two bullies was there. Patient unable to really describe the pain. Appears comfortable in bed. Patient does have some pain with attempted passive range of motion. No wearing on his head does appear to have a laceration. Patient on imaging studies were noted to have closed fracture of the left superior and inferior pubic ramus with rest and PT and OT recommended. Patient was stable and limits his baseline with his dementia. According to the sister with subsequent bedside. Case was discussed with case management for discharge planning. - Acute pain of left hip - Closed fracture of left superior pubic ramus - Dementia Disposition: [id number] HOME [facility] Time spent for discharge: 35 MINS Core Measure Documentation - Palliative Care Palliative Care/ Comfort Measures: Not Applicable - Core Measures Any of the following diagnoses?: none - VTE Discharge Requirements Deep Vein Thrombosis/Pulmonary Embolism Present on Admission: No Exam - Physical Exam Narrative exam: VITAL SIGNS: Reviewed. GENERAL: The patient appeared well nourished and normally developed. Vital signs as documented. HEAD: No signs of head trauma. EYES: Pupils are equal. Extraocular motions intact. EARS: Hearing grossly intact. MOUTH: Oropharynx is normal. NECK: No adenopathy, no JVD. CHEST: Chest with clear breath sounds bilaterally. No wheezes, rales, or rhonchi. CARDIAC: Regular rate and rhythm. S1 and S2, without murmurs, gallops, or rubs. VASCULAR: No Edema. Peripheral pulses normal and equal in all extremities. ABDOMEN: Soft, without detectable tenderness. No sign of distention. No rebound or guarding, and no masses palpated. Bowel Sounds normal. MUSCULOSKELETAL: tenderness noted in the left groin region and passive range of motion diminished limb lengths were equal. Good capillary refill distally NEUROLOGIC EXAM: Alert and oriented x 2. No focal sensory or strength deficits. Speech normal. Follows commands. PSYCHIATRIC: Mood normal. SKIN: No rash or lesions. - Constitutional Vitals: Temp Pulse Resp BP Pulse Ox 99.5 F 75 18 120/77 92 12/11/17 07:31 12/11/17 07:31 12/11/17 07:31 12/11/17 07:31 12/11/17 07:31 Plan Activity: advance as tolerated, fall precautions Diet: low fat Special Instructions: record daily weights, record daily BP diary, physical therapy, occupational therapy Follow up with: PRIMARY CARE, [Primary Care Provider] - 3-5 Days Prescriptions: Folic Acid [Folvite] 1 mg PO QDAY #30 tablet oxyCODONE /ACETAMINOPHEN [Percocet 5/325 mg] 1 tab PO Q6H PRN #14 tablet PRN Reason: Pain, Moderate (4-6)
[2017-12-11] MEDS: BABY ASPIRIN PO SCH (11:02)
[2017-12-11] MEDS: SENOKOT S PO SCH (11:03)
[2017-12-11] MEDS: CEPHULAC PO SCH (11:03)
[2017-12-11] MEDS: SODIUM CHLORIDE FLUSH SYRINGE 10 ML IV SCH (11:03)
[2017-12-11 13:39] VITALS: BP 116/87
== END 2017-12-11 15:50 | DRG 536 ==
LOC: ED 15:09 → 2B-ACE 20:04
PROVIDERS: ADMIT Internal Medicine; ATTEND Internal Medicine
DX: S32.512A Fracture of superior rim of left pubis, initial encounter for closed fracture (principal); W01.0XXA Fall on same level from slipping, tripping and stumbling without subsequent striking against object, initial encounter; F03.90 Unspecified dementia, unspecified severity, without behavioral disturbance, psychotic disturbance, mood disturbance, and anxiety; Y93.89 Activity, other specified; Y92.128 Other place in nursing home as the place of occurrence of the external cause; Y99.8 Other external cause status; S32.592A Other specified fracture of left pubis, initial encounter for closed fracture
CPT/HCPCS: 36415; 70450; 72125; 72192; 80053; 81001; 85025; 85610; 85730; 93005; 93010; 96372; J1650; J2060; J7040; Q0162